=== PATIENT | female | born 1945 | race Caucasian/White ===

== ENCOUNTER 2019-01-22 14:32 | Inpatient (IN) | payer MEDICARE ==
[2019-01-22] MEDS ORDERED: SODIUM CHLORIDE 0.9% 1,000 ML IV STA ×2 (15:01→17:31)
[2019-01-22] MEDS ORDERED: MORPHINE SULFATE 4 MG/ML SYRINGE IV STA (15:01)
--- NOTE | 2019-01-22 15:12 | ED ---
General Adult HPI - General Source: patient, RN notes reviewed, old records reviewed Mode of arrival: ambulatory Limitations: no limitations <Kashmir Marina - Last Filed: 01/22/19 17:42> <Daniel Rodriguez - Last Filed: 01/22/19 18:26> - General Chief complaint: Abdominal Pain Stated complaint: Abd pain Time Seen by Provider: 01/22/19 14:55 - History of Present Illness Initial comments: 73-year-old female patient past medical history of arthritis, hypertension, GERD presents ED with chief complaint of abdominal pain. Patient reports that yesterday she had periumbilical abdominal pain. Reports that is constant in nature. Patient reports that now the pain has migrated into her right flank region. Denies any dysuria or urinary complaints. Reports nausea without emesis. Denies any chest pain or shortness of breath. Denies any other complaints at this time. Systemic: Pt denies fatigue, fever/chills, rash. Pt denies weakness, night sweats, weight loss. Neuro: Pt denies headache, visual disturbances, syncope or pre-syncope. HEENT: Pt denies ocular discharge or irritation, otalgia, rhinorrhea, phar yngitis or notable lymphadenopathy. Cardiopulmonary: Pt denies chest pain, SOB, heart palpitations, dyspnea on exertion. Abdominal/GI: Pt denies v/d. : Pt denies dysuria, burning w/ urination, frequency/urgency. Denies new onset urinary or bowel incontinence. MSK: Pt denies myalgia, loss of strength or function in extremities. Neuro: Pt denies new onset weakness, paresthesias. (Kashmir Marina) - Related Data Allergies Allergy/AdvReac Type Severity Reaction Status Date / Time No Known Allergies Allergy Verified 01/22/19 18:02 Review of Systems ROS Other: All systems not noted in ROS Statement are negative. <Kashmir Marina - Last Filed: 01/22/19 17:42> ROS Other: All systems not noted in ROS Statement are negative. <Daniel Rodriguez - Last Filed: 01/22/19 18:26> ROS Statement: Those systems with pertinent positive or pertinent negative responses have been documented in the HPI. Past Medical History Past Medical History: GERD/Reflux, Hypertension Additional Past Medical History / Comment(s): arthritis History of Any Multi-Drug Resistant Organisms: None Reported Past Surgical History: Section, Hysterectomy Past Psychological History: No Psychological Hx Reported Smoking Status: Never smoker Past Alcohol Use History: None Reported Past Drug Use History: None Reported <Kashmir Marina - Last Filed: 01/22/19 17:42> General Exam Limitations: no limitations <Kashmir Marina - Last Filed: 01/22/19 17:42> - General Exam Comments Initial Comments: Constitutional: NAD, AOX3, Pt has pleasant affect. HEENT: NC/AT, trachea midline, neck supple, no lymphadenopathy. Posterior pharynx non erythematous, without exudates. External ears appear normal, without discharge. Mucous membranes moist. Eyes PERRLA, EOM intact. There is no scleral icterus. No pallor noted. Cardiopulmonary: RRR, no murmurs, rubs or gallops, no JVD noted. Lungs CTAB in anterior and posterior sandhu. No peripheral edema. Abdominal exam: Abdomen soft and non-distended. Abdomen tender to palpation RLQ and right flank region.. Bowel sounds active in LLQ. No hepatosplenomegaly. No ecchymosis Neuro: CN II-XII grossly intact. No nuchal rigidity. No raccon eyes, no sandoval sign, no hemotympanum. No cervical spinal tenderness. MSK: No posterior calf tenderness bilaterally, homans sign negative bilaterally. Posterior tibialis and radial pulse +2 bilaterally. Sensation intact in upper and lower extremities. Full active ROM in upper and lower extremities, 5/5 stregnth. (Kashmir Marina) Course Vital Signs 01/22/19 01/22/19 01/22/19 14:49 15:51 17:26 Temperature 99.7 F H Pulse Rate 136 H 113 H 126 H Respiratory 20 18 18 Rate Blood Pressure 140/80 133/76 132/86 O2 Sat by Pulse 98 98 98 Oximetry Medical Decision Making - Lab Data Result diagrams: 01/22/19 15:35 01/22/19 15:35 - EKG Data -: EKG Interpreted by Me (and Dr. Rodriguez ) <Kashmir Marina - Last Filed: 01/22/19 17:42> - Lab Data Result diagrams: 01/22/19 15:35 01/22/19 15:35 <Daniel Rodriguez - Last Filed: 01/22/19 18:26> - Medical Decision Making 73-year-old female patient presents to ED for chief complaint of right lower quadrant pain. Began yesterday as well as periumbilical pain. Force nausea without emesis. Denies any other complaints. Patient vital signs blood mild tachycardia, low-grade fever. Patient administered antipyretic. Physical exam displayed right lower quadrant, right lower flank tenderness. Laboratory Investigations reveal leukocytosis of 14.1. Mild hyponatremia 131. Very mildly hypoactive magnesium of 1.4. Urine is negative. EKG is with sinus tachycardia. CT abdomen and pelvis with contrast displayed thickened appendix with fat stranding and fluid distended acute appendicitis. Diverticulosis without diverticulitis. Patient shade on Zosyn. Case discussed with Dr. Rodriguez who discussed case with surgeon Dr. Johnson who will reportedly perform appendectomy tonight. Patient was that she has not eaten anything today. (Kashmir Marina) The patient was seen and examined. All diagnostics are reviewed. The case is discussed with surgery and they will be taking the patient to the operating room shortly. The case is discussed with the PA and I agree with the findings as documented. (Daniel Rodriguez) - Lab Data Lab Results 01/22/19 01/22/19 01/22/19 Range/Units 15:35 15:35 15:35 WBC 14.1 H (3.8-10.6) k/uL RBC 4.24 (3.80-5.40) m/uL Hgb 13.0 (11.4-16.0) gm/dL Hct 38.5 (34.0-46.0) % MCV 90.7 (80.0-100.0) fL MCH 30.7 (25.0-35.0) pg MCHC 33.9 (31.0-37.0) g/dL RDW 12.1 (11.5-15.5) % Plt Count 204 (150-450) k/uL Neutrophils % 90 % Lymphocytes % 3 % Monocytes % 6 % Eosinophils % 0 % Basophils % 0 % Neutrophils # 12.7 H (1.3-7.7) k/uL Lymphocytes # 0.4 L (1.0-4.8) k/uL Monocytes # 0.8 (0-1.0) k/uL Eosinophils # 0.0 (0-0.7) k/uL Basophils # 0.0 (0-0.2) k/uL Sodium 131 L (137-145) mmol/L Potassium 3.8 (3.5-5.1) mmol/L Chloride 95 L (98-107) mmol/L Carbon Dioxide 25 (22-30) mmol/L Anion Gap 11 mmol/L BUN 17 (7-17) mg/dL Creatinine 0.80 (0.52-1.04) mg/dL Est GFR (CKD-EPI)AfAm 86 (>60 ml/min/1.73 sqM) Est GFR (CKD-EPI)NonAf 75 (>60 ml/min/1.73 sqM) Glucose 138 H (74-99) mg/dL Plasma Lactic Acid Cale 1.2 (0.7-2.0) mmol/L Calcium 10.3 H (8.4-10.2) mg/dL Magnesium 1.4 L (1.6-2.3) mg/dL Total Bilirubin 2.1 H (0.2-1.3) mg/dL AST 23 (14-36) U/L ALT 21 (4-34) U/L Alkaline Phosphatase 68 (38-126) U/L Troponin I (0.000-0.034) ng/mL Total Protein 8.0 (6.3-8.2) g/dL Albumin 4.8 (3.5-5.0) g/dL Lipase 76 (23-300) U/L Urine Color Urine Appearance (Clear) Urine pH (5.0-8.0) Ur Specific [place] (1.001-1.035) Urine Protein (Negative) Urine Glucose (UA) (Negative) Urine Ketones (Negative) Urine Blood (Negative) Urine Nitrite (Negative) Urine Bilirubin (Negative) Urine Urobilinogen (<2.0) mg/dL Ur Leukocyte Esterase (Negative) 01/22/19 01/22/19 Range/Units 15:35 15:35 WBC (3.8-10.6) k/uL RBC (3.80-5.40) m/uL Hgb (11.4-16.0) gm/dL Hct (34.0-46.0) % MCV (80.0-100.0) fL MCH (25.0-35.0) pg MCHC (31.0-37.0) g/dL RDW (11.5-15.5) % Plt Count (150-450) k/uL Neutrophils % % Lymphocytes % % Monocytes % % Eosinophils % % Basophils % % Neutrophils # (1.3-7.7) k/uL Lymphocytes # (1.0-4.8) k/uL Monocytes # (0-1.0) k/uL Eosinophils # (0-0.7) k/uL Basophils # (0-0.2) k/uL Sodium (137-145) mmol/L Potassium (3.5-5.1) mmol/L Chloride (98-107) mmol/L Carbon Dioxide (22-30) mmol/L Anion Gap mmol/L BUN (7-17) mg/dL Creatinine (0.52-1.04) mg/dL Est GFR (CKD-EPI)AfAm (>60 ml/min/1.73 sqM) Est GFR (CKD-EPI)NonAf (>60 ml/min/1.73 sqM) Glucose (74-99) mg/dL Plasma Lactic Acid Cale (0.7-2.0) mmol/L Calcium (8.4-10.2) mg/dL Magnesium (1.6-2.3) mg/dL Total Bilirubin (0.2-1.3) mg/dL AST (14-36) U/L ALT (4-34) U/L Alkaline Phosphatase (38-126) U/L Troponin I <0.012 (0.000-0.034) ng/mL Total Protein (6.3-8.2) g/dL Albumin (3.5-5.0) g/dL Lipase (23-300) U/L Urine Color Light Yellow Urine Appearance Clear (Clear) Urine pH 7.0 (5.0-8.0) Ur Specific [place] 1.008 (1.001-1.035) Urine Protein Negative (Negative) Urine Glucose (UA) Negative (Negative) Urine Ketones 1+ H (Negative) Urine Blood Negative (Negative) Urine Nitrite Negative (Negative) Urine Bilirubin Negative (Negative) Urine Urobilinogen <2.0 (<2.0) mg/dL Ur Leukocyte Esterase Negative (Negative) - EKG Data EKG Comments: sinus tachycardia, nonstenotic ST abnormality. Abnormal EKG. No concern for acute ischemia. (Kashmir Marina) Disposition Is patient prescribed a controlled substance at d/c from ED?: No <Kashmir Marina - Last Filed: 01/22/19 17:42> <Daniel Rodriguez - Last Filed: 01/22/19 18:26> Clinical Impression: Acute appendicitis Disposition: ADMITTED IP TO THIS HOSP Condition: Stable
[2019-01-22] MEDS ORDERED: ACETAMINOPHEN TAB 325 MG TAB PO STA (15:20)
[2019-01-22 16:20] LABS: Albumin 4.8 g/dL (3.5-5.0); Calcium 10.3 mg/dL (8.4-10.2); Magnesium 1.4 mg/dL (1.6-2.3); Potassium 3.8 mmol/L (3.5-5.1); Total Bilirubin 2.1 mg/dL (0.2-1.3)
[2019-01-22 16:25] LABS: Appearance,Urine Clear (Clear); Bilirubin,Urine Negative (Negative); Blood,Urine Negative (Negative); Color,Urine Light Yellow; Glucose,Urine (UA) Negative (Negative); Ketones,Urine 1+ (Negative); Leukocyte Esterase,Urine Negative (Negative); Nitrite,Urine Negative (Negative); Protein,Urine Negative (Negative); Specific Gravity,Urine 1.008 (1.001-1.035); Urobilinogen,Urine <2.0 mg/dL (<2.0)
[2019-01-22 16:28] LABS: Basophils % (A) 0 %; Eosinophils % (A) 0 %; HCT 38.5 % (34.0-46.0); Lymphocytes # (A) 0.4 k/uL (1.0-4.8); Lymphocytes % (A) 3 %; MCH 30.7 pg (25.0-35.0); MCHC 33.9 g/dL (31.0-37.0); MCV 90.7 fL (80.0-100.0); Mean Platelet Volume 7.6; Monocytes # (A) 0.8 k/uL (0-1.0); Monocytes % (A) 6 %; Neutrophils # (A) 12.7 k/uL (1.3-7.7); Neutrophils % (A) 90 %; Platelet Count 204 k/uL (150-450); RBC 4.24 m/uL (3.80-5.40); RDW 12.1 % (11.5-15.5); WBC 14.1 k/uL (3.8-10.6)
--- NOTE | 2019-01-22 17:23 | CT ---
EXAMINATION TYPE: CT abdomen pelvis w con DATE OF EXAM: 01/22/2019 COMPARISON: None HISTORY: Rt side abdominal pain. CT DLP: 729.7 mGycm Automated exposure control for dose reduction was used. CONTRAST: Performed with IV Contrast, patient injected with 100 mL of Isovue 300. Multiple axial sections were obtained from the diaphragm to the floor the pelvis with intravenous con trast. There is minimal subsegmental atelectasis right lung base. There is no pleural effusion. Heart appear s normal. There is small hiatal hernia. The remainder of the stomach appears normal. Liver spleen pancreas gall bladder appear normal. Bile ducts are not dilated. There is no adrenal mass. There are multiple cortical cysts in both kidneys that measure up to 1.3 cm . There is a large right renal pelvis. There is prominent left renal pelvis. Delayed images show norm al renal excretion. Ureters are not dilated. Bladder distends smoothly. There is no inguinal hernia. There is no free fluid in the pelvis. There are multiple sigmoid diverticula. There is no sign of div erticulitis. There is thickened fluid-filled appendix with surrounding fat stranding. Appendix measures up to 12 m m. There is minimal fluid in the right paracolic gutter. There is no free air. There is no evidence of a bowel obstruction. Terminal ileum appears normal. Lumbar vertebra have fairly normal alignment. There is some degenerative disc space narrowing at L2-3 L3-4 L4-5. Bony pelvis is intact. IMPRESSION: Thickened appendix with fat stranding and fluid consistent with acute appendicitis. No abscess. Sigmoid diverticulosis without diverticulitis. Small hiatal hernia.
[2019-01-22] MEDS ORDERED: PIPERACILLIN-TAZOBACTAM 3.375 GM in SODIUM CHLORIDE 0.9% 100 ML IVPB STA (17:31)
[2019-01-22] MEDS ORDERED: NALOXONE 0.4 MG/ML 1 ML VIAL IV PRN (17:45)
[2019-01-22] MEDS: HYDROmorphone 1 MG/ML 1 ML SYRINGE IVP PRN (19:27)
[2019-01-22] MEDS: SODIUM CHLORIDE 0.9% 1,000 ML IV SCH (19:28)
--- NOTE | 2019-01-22 21:45 | P.GSHP ---
History of Present Illness H&P Date: 01/22/19 73-year-old female presents to the emergency department with complaints of abdominal pain. She states that the pain started yesterday in the periumbilical area and the pain migrated to the right lower quadrant. She also complained of nausea episodes but denied any emesis. She denied any fevers, chills, chest pain or shortness of breath. On workup in the emergency department, the patient was found to have acute appendicitis based on CT findings. She also was noted to have a leukocytosis of 14,000. She states her previous surgical history includes 3 C-sections and a hysterectomy. Hysterectomy was done with robotic technique. She has no additional complaints at this time. - Review of Systems All systems: negative Past Medical History Past Medical History: GERD/Reflux, Hypertension Additional Past Medical History / Comment(s): arthritis History of Any Multi-Drug Resistant Organisms: None Reported Past Surgical History: Section, Hysterectomy Past Anesthesia/Blood Transfusion Reactions: No Reported Reaction Past Psychological History: No Psychological Hx Reported Smoking Status: Never smoker Past Alcohol Use History: None Reported Past Drug Use History: None Reported - Past Family History Mother Family Medical History: Diabetes Mellitus Additional Family Medical History / Comment(s): hear disease Medications and Allergies Home Medications Medication Instructions Recorded Confirmed Type ALPRAZolam [Xanax] 0.166 mg PO HS PRN 01/22/19 01/22/19 History Citalopram Hydrobromide 20 mg PO DAILY 01/22/19 01/22/19 History [Citalopram HBr] Hydrocodone/Acetaminophen [[place] 1 tab PO Q6H 01/22/19 01/22/19 History 10-325] Lisinopril-Hctz 20-25 mg 1 tab PO DAILY 01/22/19 01/22/19 History [Zestoretic 20-25] Metoprolol Tartrate [Lopressor] 50 mg PO BID 01/22/19 01/22/19 History Ranitidine HCl 150 mg PO BID 01/22/19 01/22/19 History Zolpidem Tartrate [Ambien] 3.33 mg PO HS PRN 01/22/19 01/22/19 History Allergies Allergy/AdvReac Type Severity Reaction Status Date / Time No Known Allergies Allergy Verified 01/22/19 18:02 Surgical - Exam Osteopathic Statement: *. No significant issues noted on an osteopathic structural exam other than those noted in the History and Physical/Consult. Vital Signs Temp Pulse Resp BP Pulse Ox 99.7 F H 136 H 20 140/80 98 01/22/19 14:49 01/22/19 14:49 01/22/19 14:49 01/22/19 14:49 01/22/19 14:49 - General well nourished, no distress - Eyes PERRL - Neck trachea midline - Respiratory normal respiratory effort - Abdomen soft, tender to palpation in the right lower quadrant, nondistended, no rebound, no guarding - Musculoskeletal normal gait - Psychiatric oriented to time, oriented to person, oriented to place Results - Labs 01/22/19 15:35 01/22/19 15:35 Abnormal Lab Results - Last 24 Hours (Table) 01/22/19 01/22/19 01/22/19 Range/Units 15:35 15:35 15:35 WBC 14.1 H (3.8-10.6) k/uL Neutrophils # 12.7 H (1.3-7.7) k/uL Lymphocytes # 0.4 L (1.0-4.8) k/uL Sodium 131 L (137-145) mmol/L Chloride 95 L (98-107) mmol/L Glucose 138 H (74-99) mg/dL Calcium 10.3 H (8.4-10.2) mg/dL Magnesium 1.4 L (1.6-2.3) mg/dL Total Bilirubin 2.1 H (0.2-1.3) mg/dL Urine Ketones 1+ H (Negative) Diabetes panel 01/22/19 Range/Units 15:35 Sodium 131 L (137-145) mmol/L Potassium 3.8 (3.5-5.1) mmol/L Chloride 95 L (98-107) mmol/L Carbon Dioxide 25 (22-30) mmol/L BUN 17 (7-17) mg/dL Creatinine 0.80 (0.52-1.04) mg/dL Glucose 138 H (74-99) mg/dL Calcium 10.3 H (8.4-10.2) mg/dL AST 23 (14-36) U/L ALT 21 (4-34) U/L Alkaline Phosphatase 68 (38-126) U/L Total Protein 8.0 (6.3-8.2) g/dL Albumin 4.8 (3.5-5.0) g/dL Calcium panel 01/22/19 Range/Units 15:35 Calcium 10.3 H (8.4-10.2) mg/dL Albumin 4.8 (3.5-5.0) g/dL Pituitary panel 01/22/19 Range/Units 15:35 Sodium 131 L (137-145) mmol/L Potassium 3.8 (3.5-5.1) mmol/L Chloride 95 L (98-107) mmol/L Carbon Dioxide 25 (22-30) mmol/L BUN 17 (7-17) mg/dL Creatinine 0.80 (0.52-1.04) mg/dL Glucose 138 H (74-99) mg/dL Calcium 10.3 H (8.4-10.2) mg/dL Adrenal panel 01/22/19 Range/Units 15:35 Sodium 131 L (137-145) mmol/L Potassium 3.8 (3.5-5.1) mmol/L Chloride 95 L (98-107) mmol/L Carbon Dioxide 25 (22-30) mmol/L BUN 17 (7-17) mg/dL Creatinine 0.80 (0.52-1.04) mg/dL Glucose 138 H (74-99) mg/dL Calcium 10.3 H (8.4-10.2) mg/dL Total Bilirubin 2.1 H (0.2-1.3) mg/dL AST 23 (14-36) U/L ALT 21 (4-34) U/L Alkaline Phosphatase 68 (38-126) U/L Total Protein 8.0 (6.3-8.2) g/dL Albumin 4.8 (3.5-5.0) g/dL - Imaging CT scan - abdomen: report reviewed, image reviewed CT scan - pelvis: report reviewed, image reviewed Assessment and Plan (1) Acute appendicitis Narrative/Plan: 73-year-old female with acute appendicitis - Begin antibiotics - Keep nothing by mouth - Begin DVT prophylaxis - Plan for laparoscopic appendectomy. Further recommendations after surgical procedure. Current Visit: Yes Status: Acute Code(s): K35.80 - UNSPECIFIED ACUTE APPENDICITIS SNOMED Code(s): 64656916
[2019-01-22] MEDS ORDERED: LIDOCAINE 1% INJ 10MG/ML (20 ML MDV) ONE (21:50)
[2019-01-22] MEDS ORDERED: ceFAZolin 1,000 MG VIAL IV ONE (21:50)
[2019-01-22] MEDS ORDERED: PROPOFOL 10 MG/ML 20 ML VIAL IV ONE (21:50)
[2019-01-22] MEDS ORDERED: SUCCINYLCHOLINE CHLORIDE 100 MG/5 ML SYR IV ONE (21:50)
[2019-01-22] MEDS ORDERED: fentaNYL (PF) 50 MCG/ML 2 ML AMP ONE (21:50)
[2019-01-22] MEDS ORDERED: GLYCOPYRROLATE 0.2 MG/ML 2 ML VIAL ONE (21:50)
[2019-01-22] MEDS ORDERED: IV FLUID CONTINUATION 1,000 ML IV ONE (21:50)
[2019-01-22] MEDS ORDERED: NEOSTIGMINE 1 MG/ML 10 ML VIAL ONE (21:50)
[2019-01-22] MEDS ORDERED: ROCURONIUM BROMIDE 10 MG/ML 10 ML VIAL IV ONE (21:50)
[2019-01-22] MEDS ORDERED: MIDAZOLAM 2 MG/2 ML VIAL ONE (21:50)
[2019-01-22] MEDS ORDERED: HYDROmorphone (PF) 1 MG/ML ONE (21:50)
[2019-01-22] MEDS ORDERED: BUPIVACAIN-EPI 0.5%-1:200,000 30 ML VIAL SQ ONE (22:05)
[2019-01-22] MEDS ORDERED: LIDOCAINE 0.5%-EPI 1:200,000 50 ML VIAL SQ ONE ×2 (22:05)
--- NOTE | 2019-01-22 22:57 | P.OP ---
Date of Procedure: 01/22/19 Preoperative Diagnosis: acute appendicitis Postoperative Diagnosis: acute appendicitis Procedure(s) Performed: laparoscopic appendectomy Anesthesia: JINA Surgeon: Aleena Johnson Pathology: other (appendix) Condition: stable Disposition: floor Indications for Procedure: 73-year-old female presented to the emergency department with complaints of right lower quadrant abdominal pain. On workup she was found to have acute appendicitis. Plan was made for laparoscopic appendectomy. The patient was excellent the risks, benefits and alternatives to the procedure and did provide consent prior to attending the operating suite. Operative Findings: inflamed and erythematous appendix with surrounding exudative changes Description of Procedure: The patient was brought into the operating suite and placed in supine position on the operating table. Sedation was provided by anesthesia and the patient underwent endotracheal intubation. The patient was then prepped and draped in regular sterile fashion. A super umbilical incision was made dissection was carried to the fascia. The fascia was incised and a 12 mm trocar was placed. Pneumoperitoneum was then achieved. 2 additional 5 mm ports were placed. One was placed in the left lower quadrant and one was placed in the suprapubic region. The patient was then positioned appropriately. The cecum was clearly identified and the appendix came into view. The appendix was grasped and elevated and the base of the appendix was clearly visualized. The appendix was noted to be inflamed and erythematous with attached exudate. Exudate was removed. A window was created between the appendix and the mesoappendix using a [place] dissector. The appendix was dissected free from the mesoappendix using a LigaSure device. The appendix was then resected at the base using a stapler device. Hemostasis was noted to be maintained. Irrigation was used in the right lower quadrant. Due to the exudative changes and necrotic looking appendix, AYESHA drain was placed in the right lower quadrant from the pelvic 5 mm port site. the super umbilical fascial incision site was closed with 0 Vicryl suture under direct visualization using a Kermit Chisholm device. Pneumoperitoneum was released and all skin incisions were closed with 4-0 Vicryl subcuticular suture. Sterile dressing was applied. The patient was awakened in the operating suite and taken to postanesthesia care unit in stable condition.
[2019-01-22] MEDS ORDERED: HYDROmorphone 0.5 MG/0.5 ML SYRINGE IVP ONE ×2 (23:03→23:11)
[2019-01-22] MEDS ORDERED: ONDANSETRON 4 MG/2 ML VIAL IVP ONE (23:06)
[2019-01-22] MEDS: PIPERACILLIN-TAZOBACTAM 3.375 GM in SODIUM CHLORIDE 0.9% 100 ML IVPB SCH (23:59)
[2019-01-23] MEDS: HEPARIN SODIUM,PORCINE 5,000 UNIT/ML 1 ML VIAL SQ SCH ×3 (01:10→15:09)
[2019-01-23] MEDS: HYDROmorphone 1 MG/ML 1 ML SYRINGE IVP PRN ×5 (02:33→19:38)
[2019-01-23 07:17] LABS: Basophils % (A) 0 %; Eosinophils % (A) 0 %; HCT 32.5 % (34.0-46.0); HGB 10.8 gm/dL (11.4-16.0); Lymphocytes # (A) 0.4 k/uL (1.0-4.8); Lymphocytes % (A) 4 %; MCH 31.3 pg (25.0-35.0); MCHC 33.2 g/dL (31.0-37.0); MCV 94.4 fL (80.0-100.0); Mean Platelet Volume 7.4; Monocytes # (A) 0.4 k/uL (0-1.0); Monocytes % (A) 4 %; Neutrophils # (A) 8.8 k/uL (1.3-7.7); Neutrophils % (A) 90 %; Platelet Count 155 k/uL (150-450); RBC 3.44 m/uL (3.80-5.40); RDW 12.4 % (11.5-15.5); WBC 9.8 k/uL (3.8-10.6)
[2019-01-23] MEDS: METOPROLOL TARTRATE 50 MG TAB PO SCH ×2 (07:30→20:12)
[2019-01-23] MEDS: CITALOPRAM HYDROBROMIDE 20 MG TAB PO SCH (07:30)
[2019-01-23] MEDS: PIPERACILLIN-TAZOBACTAM 3.375 GM in SODIUM CHLORIDE 0.9% 100 ML IVPB SCH ×2 (07:31→15:08)
[2019-01-23] MEDS: LISINOPRIL-HCTZ 20-25 MG 1 EACH TAB PO SCH (07:31)
[2019-01-23 07:40] LABS: Albumin 3.2 g/dL (3.5-5.0); Calcium 8.4 mg/dL (8.4-10.2); Potassium 4.9 mmol/L (3.5-5.1); Total Bilirubin 1.5 mg/dL (0.2-1.3); Total Protein 5.8 g/dL (6.3-8.2)
[2019-01-23] MEDS: ONDANSETRON 4 MG/2 ML VIAL IVP PRN ×2 (07:41→13:15)
--- NOTE | 2019-01-23 08:36 | P.PN ---
Subjective Progress Note Date: 01/23/19 Patient seen and examined at bedside. States she is feeling somewhat better today. Denies nausea vomiting. Denies fevers. Objective - Vital Signs Vital signs: Vital Signs Temp 98.4 F 01/23/19 05:03 Pulse 134 H 01/23/19 05:03 Resp 18 01/23/19 05:03 BP 138/76 01/23/19 05:03 Pulse Ox 91 L 01/23/19 05:03 Intake & Output 01/22/19 01/23/19 01/23/19 18:59 06:59 18:59 Intake Total 500 Output Total 215 25 Balance 285 -25 Weight 58.06 kg Intake: IV 500 Output: Drainage 25 Abdomen 25 Urine 200 Estimated Blood Loss 15 Other: Voiding Method Toilet # Voids 2 # Bowel Movements 0 # Emeses 1 - Constitutional General appearance: Present: cooperative, no acute distress - Gastrointestinal Gastrointestinal Comment(s): Soft, appropriate tenderness, nondistended, no rebound, no guarding, AYESHA drain in place with serosanguineous output, incision sites are clean, dry and intact - Musculoskeletal Musculoskeletal: Present: generalized weakness - Psychiatric Psychiatric: Present: A&O x's 3 - Labs CBC & Chem 7: 01/23/19 06:52 01/23/19 06:52 Labs: Abnormal Lab Results - Last 24 Hours (Table) 01/22/19 01/22/19 01/22/19 Range/Units 15:35 15:35 15:35 WBC 14.1 H (3.8-10.6) k/uL RBC (3.80-5.40) m/uL Hgb (11.4-16.0) gm/dL Hct (34.0-46.0) % Neutrophils # 12.7 H (1.3-7.7) k/uL Lymphocytes # 0.4 L (1.0-4.8) k/uL Sodium 131 L (137-145) mmol/L Chloride 95 L (98-107) mmol/L Glucose 138 H (74-99) mg/dL Calcium 10.3 H (8.4-10.2) mg/dL Magnesium 1.4 L (1.6-2.3) mg/dL Total Bilirubin 2.1 H (0.2-1.3) mg/dL Total Protein (6.3-8.2) g/dL Albumin (3.5-5.0) g/dL Urine Ketones 1+ H (Negative) 01/23/19 01/23/19 Range/Units 06:52 06:52 WBC (3.8-10.6) k/uL RBC 3.44 L (3.80-5.40) m/uL Hgb 10.8 L (11.4-16.0) gm/dL Hct 32.5 L (34.0-46.0) % Neutrophils # 8.8 H (1.3-7.7) k/uL Lymphocytes # 0.4 L (1.0-4.8) k/uL Sodium (137-145) mmol/L Chloride 108 H (98-107) mmol/L Glucose 110 H (74-99) mg/dL Calcium (8.4-10.2) mg/dL Magnesium (1.6-2.3) mg/dL Total Bilirubin 1.5 H (0.2-1.3) mg/dL Total Protein 5.8 L (6.3-8.2) g/dL Albumin 3.2 L (3.5-5.0) g/dL Urine Ketones (Negative) Assessment and Plan (1) Acute appendicitis Narrative/Plan: 73-year-old female with acute appendicitis, Postoperative day #1 from laparoscopic appendectomy - Continue antibiotics - Continue clear liquid diet - Continue DVT prophylaxis - Tachycardia noted, will restart pt's metoprolol and continue to follow - Increase activity - Progressing slowly Current Visit: Yes Status: Acute Code(s): K35.80 - UNSPECIFIED ACUTE APPENDICITIS SNOMED Code(s): 12680111
[2019-01-23] MEDS: SODIUM CHLORIDE 0.9% 1,000 ML IV SCH ×2 (11:22)
[2019-01-24] MEDS: HEPARIN SODIUM,PORCINE 5,000 UNIT/ML 1 ML VIAL SQ SCH ×3 (00:38→15:33)
[2019-01-24] MEDS: PIPERACILLIN-TAZOBACTAM 3.375 GM in SODIUM CHLORIDE 0.9% 100 ML IVPB SCH ×3 (00:38→15:33)
[2019-01-24] MEDS: HYDROmorphone 1 MG/ML 1 ML SYRINGE IVP PRN ×3 (00:43→09:04)
[2019-01-24] MEDS: SODIUM CHLORIDE 0.9% 1,000 ML IV SCH ×2 (02:07→04:55)
[2019-01-24 08:26] LABS: Basophils % (A) 0 %; Eosinophils # (A) 0.1 k/uL (0-0.7); Eosinophils % (A) 1 %; HCT 33.6 % (34.0-46.0); Lymphocytes # (A) 0.7 k/uL (1.0-4.8); Lymphocytes % (A) 9 %; MCH 31.8 pg (25.0-35.0); MCHC 32.7 g/dL (31.0-37.0); MCV 97.1 fL (80.0-100.0); Mean Platelet Volume 7.5; Monocytes # (A) 0.3 k/uL (0-1.0); Monocytes % (A) 4 %; Neutrophils # (A) 6.7 k/uL (1.3-7.7); Neutrophils % (A) 85 %; Platelet Count 172 k/uL (150-450); RBC 3.46 m/uL (3.80-5.40); RDW 12.6 % (11.5-15.5); WBC 7.9 k/uL (3.8-10.6)
[2019-01-24] MEDS: METOPROLOL TARTRATE 50 MG TAB PO SCH ×2 (08:54→21:10)
[2019-01-24] MEDS: CITALOPRAM HYDROBROMIDE 20 MG TAB PO SCH (08:54)
[2019-01-24] MEDS: LISINOPRIL-HCTZ 20-25 MG 1 EACH TAB PO SCH (08:54)
[2019-01-24 08:56] LABS: ALT 12 U/L (4-34); AST 17 U/L (14-36); African American GFR (CKD) >90 (>60 ml/min/1.73 sqM); Albumin 3.1 g/dL (3.5-5.0); Alkaline Phosphatase 46 U/L (38-126); Anion Gap 10 mmol/L; Blood Urea Nitrogen 7 mg/dL (7-17); Calcium 8.4 mg/dL (8.4-10.2); Carbon Dioxide 21 mmol/L (22-30); Chloride 104 mmol/L (98-107); Glucose 100 mg/dL (74-99); Non-African American GFR(CKD) 82 (>60 ml/min/1.73 sqM); Potassium 3.5 mmol/L (3.5-5.1); Sodium 135 mmol/L (137-145); Total Bilirubin 1.4 mg/dL (0.2-1.3); Total Protein 5.7 g/dL (6.3-8.2)
[2019-01-24] MEDS ORDERED: HYDROmorphone 0.5 MG/0.5 ML SYRINGE IVP PRN (11:16)
[2019-01-24] MEDS: HYDROcodone/APAP 10-325MG 1 EACH TAB PO PRN ×2 (16:35→21:10)
--- NOTE | 2019-01-24 16:55 | P.PN ---
Subjective Progress Note Date: 01/24/19 Patient seen and examined at bedside. She states that she still is not feeling well. She states that she is having pain at her surgical sites. She also complains of nausea and one vomiting episode this morning. She states that she has had 3 bowel movements today. AYESHA drain has been in place with seros anguineous output. Objective - Vital Signs Vital signs: Vital Signs Temp 97.6 F 01/24/19 13:19 Pulse 75 01/24/19 13:19 Resp 16 01/24/19 13:19 BP 103/61 01/24/19 13:19 Pulse Ox 92 L 01/24/19 13:19 Intake & Output 01/23/19 01/24/19 01/24/19 18:59 06:59 18:59 Intake Total 540 Output Total 95 205 140 Balance 445 -205 -140 Intake: Oral 540 Output: Drainage 95 205 140 Abdomen 95 205 140 Other: Voiding Method Toilet # Voids 4 1 2 # Bowel Movements 0 # Emeses 1 - Constitutional General appearance: Present: cooperative, no acute distress - Respiratory Details: No difficulty with respiration - Gastrointestinal Gastrointestinal Comment(s): Soft, appropriate tenderness, nondistended, no rebound, no guarding, AYESHA drain in place with serosanguineous output, incision sites are clean, dry and intact - Musculoskeletal Musculoskeletal: Present: generalized weakness - Labs CBC & Chem 7: 01/24/19 08:11 01/24/19 08:11 Labs: Abnormal Lab Results - Last 24 Hours (Table) 01/24/19 01/24/19 Range/Units 08:11 08:11 RBC 3.46 L (3.80-5.40) m/uL Hgb 11.0 L (11.4-16.0) gm/dL Hct 33.6 L (34.0-46.0) % Lymphocytes # 0.7 L (1.0-4.8) k/uL Sodium 135 L (137-145) mmol/L Carbon Dioxide 21 L (22-30) mmol/L Glucose 100 H (74-99) mg/dL Total Bilirubin 1.4 H (0.2-1.3) mg/dL Total Protein 5.7 L (6.3-8.2) g/dL Albumin 3.1 L (3.5-5.0) g/dL Assessment and Plan (1) Acute appendicitis Narrative/Plan: 73-year-old female with acute appendicitis, Postoperative day #2 from laparoscopic appendectomy - Continue antibiotics, leukocytosis has resolved - Advance to soft diet - Continue AYESHA drain for one more day - Continue DVT prophylaxis - Tachycardia noted, will restart pt's metoprolol and continue to follow - Increase activity - Patient was complaining of some reflux like symptoms, we will begin Protonix - Likely discharge in 24 hours - Progressing slowly Current Visit: Yes Status: Acute Code(s): K35.80 - UNSPECIFIED ACUTE APPENDICITIS SNOMED Code(s): 97387170
[2019-01-24] MEDS: PANTOPRAZOLE 40 MG/10 ML VIAL IVP SCH (17:50)
[2019-01-25] MEDS: HEPARIN SODIUM,PORCINE 5,000 UNIT/ML 1 ML VIAL SQ SCH ×3 (00:28→14:48)
[2019-01-25] MEDS: PIPERACILLIN-TAZOBACTAM 3.375 GM in SODIUM CHLORIDE 0.9% 100 ML IVPB SCH ×3 (00:28→14:49)
[2019-01-25] MEDS: METOPROLOL TARTRATE 50 MG TAB PO SCH (08:01)
[2019-01-25] MEDS: CITALOPRAM HYDROBROMIDE 20 MG TAB PO SCH (08:01)
[2019-01-25] MEDS: LISINOPRIL-HCTZ 20-25 MG 1 EACH TAB PO SCH (08:01)
[2019-01-25] MEDS: PANTOPRAZOLE 40 MG/10 ML VIAL IVP SCH (08:02)
[2019-01-25] MEDS: HYDROcodone/APAP 10-325MG 1 EACH TAB PO PRN ×2 (08:12→15:51)
--- NOTE | 2019-01-25 12:08 | P.DS ---
Providers Date of admission: 01/22/19 17:34 Attending physician: Aleena Johnson DO Primary care physician: Physician Nonstaff - Discharge Diagnosis(es) (1) Acute appendicitis Current Visit: Yes Status: Acute Hospital Course: 73-year-old female presented to the emergency department with complaints of abdominal pain. On workup she was found to have acute appendicitis.she was marilyn eduled for a laparoscopic appendectomy. Postoperatively, she was continued on antibiotics and did improve over her hospital stay. She was surgically noted to be stable for discharge. AYESHA drain was removed prior to discharge. She will be discharged on antibiotics. Assessment: abdomen, soft, appropriate tenderness, nondistended, no rebound, incision sites are clean, dry and intact Procedures: laparoscopic appendectomy Patient Condition at Discharge: Stable Plan - Discharge Summary Discharge Rx Participant: No New Discharge Prescriptions: New Amoxicillin/Potassium Clav [Augmentin 500-125 Tablet] 1 tab PO Q12HR #10 tab Continue Zolpidem Tartrate [Ambien] 3.33 mg PO HS PRN PRN Reason: Insomnia Hydrocodone/Acetaminophen [[place] 10-325] 1 tab PO Q6H ALPRAZolam [Xanax] 0.166 mg PO HS PRN PRN Reason: Anxiety Ranitidine HCl 150 mg PO BID Metoprolol Tartrate [Lopressor] 50 mg PO BID Lisinopril-Hctz 20-25 mg [Zestoretic 20-25] 1 tab PO DAILY Citalopram Hydrobromide [Citalopram HBr] 20 mg PO DAILY Discharge Medication List ALPRAZolam [Xanax] 0.166 mg PO HS PRN 01/22/19 [History] Citalopram Hydrobromide [Citalopram HBr] 20 mg PO DAILY 01/22/19 [History] Hydrocodone/Acetaminophen [[place] 10-325] 1 tab PO Q6H 01/22/19 [History] Lisinopril-Hctz 20-25 mg [Zestoretic 20-25] 1 tab PO DAILY 01/22/19 [History] Metoprolol Tartrate [Lopressor] 50 mg PO BID 01/22/19 [History] Ranitidine HCl 150 mg PO BID 01/22/19 [History] Zolpidem Tartrate [Ambien] 3.33 mg PO HS PRN 01/22/19 [History] Amoxicillin/Potassium Clav [Augmentin 500-125 Tablet] 1 tab PO Q12HR #10 tab 01/25/19 [Rx] Follow up Appointment(s)/Referral(s): Nonstaff,Physician [Primary Care Provider] - 1-2 days Aleena Johnson DO [Doctor of Osteopathic Medicine] - 2 Weeks Patient Instructions/Handouts: Laparoscopic Appendectomy (DC) Activity/Diet/Wound Care/Special Instructions: okay to shower Expect drainage from previous drain site, use gauze dressing Stay on soft foods Take antibiotics as prescribed Discharge Disposition: HOME SELF-CARE
[2019-01-25 15:01] VITALS: BP 138/82; PULSE 88; RESP 14; TEMP 98.3
== END 2019-01-25 20:39 | disposition home or self-care (01) | DRG 342 ==
LOC: EC 14:32 → 6NMEDSUR 17:34 → OBSVTOIN 01-25 10:23
PROVIDERS: ADMIT Surgery; ATTEND Surgery
PROC: 0DTJ4ZZ Resection of Appendix, Percutaneous Endoscopic Approach (ICD-10-PCS; principal; 2019-01-22 19:00)
DX: K35.80 Unspecified acute appendicitis (principal); E87.1 Hypo-osmolality and hyponatremia; I10 Essential (primary) hypertension; K21.9 Gastro-esophageal reflux disease without esophagitis; K57.90 Diverticulosis of intestine, part unspecified, without perforation or abscess without bleeding; M19.90 Unspecified osteoarthritis, unspecified site; Z79.899 Other long term (current) drug therapy; Z98.891 History of uterine scar from previous surgery; Z90.710 Acquired absence of both cervix and uterus; Z83.3 Family history of diabetes mellitus; Z82.49 Family history of ischemic heart disease and other diseases of the circulatory system
CPT/HCPCS: 36415; 74177; 80053; 81003; 83605; 83690; 83735; 84484; 85025; 88304; 93005; 96361; 96365; 96375; 99285